=== PATIENT | female | born 1990 ===

== ENCOUNTER 2022-08-02 01:05 | Inpatient (IN) | payer SELFPAY ==
[2022-08-02] MEDS ORDERED: Terbutaline 1 MG/ML SDV SUBCUT PRN (01:31)
[2022-08-02] MEDS ORDERED: Ondansetron 4 MG/2 ML SDV IVPUSH PRN (01:31)
[2022-08-02] MEDS ORDERED: Carboprost Tromethamine 250 MCG/1 ML Amp IM PRN (01:31)
[2022-08-02] MEDS ORDERED: Sodium Chloride 0.9% 2.5 ML Syringe FLUSH PRN (01:31)
[2022-08-02] MEDS ORDERED: Butorphanol 1 MG/ML SDV IVPUSH PRN (01:31)
[2022-08-02] MEDS ORDERED: Sodium Chloride 0.9% 10 ML Syringe FLUSH PRN (01:31)
[2022-08-02] MEDS ORDERED: Lidocaine 1% 50 ML MDV INJECT PRN (01:31)
[2022-08-02] MEDS ORDERED: Sodium Chloride 0.9% 20 ML SDV IV PRN (01:31)
[2022-08-02] MEDS ORDERED: Tranexamic Acid 1,000 MG in Sodium Chloride 0.9% 100 ML IV PRN (01:31)
[2022-08-02] MEDS ORDERED: Water For Irrigation,Sterile 1,000 ML Container IRR PRN (01:31)
[2022-08-02] MEDS ORDERED: Methylergonovine 0.2 MG/1 ML Amp IM PRN (01:31)
[2022-08-02] MEDS ORDERED: Misoprostol 200 MCG Tab PO PRN (01:31)
[2022-08-02] MEDS ORDERED: Lactated Ringers 1,000 ML IV SCH (01:45)
[2022-08-02] MEDS ORDERED: Oxytocin/0.9 % Sodium Chloride 30 UNIT/500 ML BAG IV SCH ×2 (01:45)
[2022-08-02] MEDS ORDERED: Misoprostol 25 MCG (1/4 of 100 MCG) Tab VAG PRN ×2 (02:00→06:00)
[2022-08-02 09:25] LABS: CARBON DIOXIDE,CO2 19.2 mmol/L (21.0-32.0); POTASSIUM,K 3.8 mmol/L (3.5-5.1)
[2022-08-02] MEDS ORDERED: Labetalol 100 MG/20 ML MDV IVPUSH ONE (13:42)
[2022-08-02] MEDS ORDERED: Benzocaine/Menthol 20%-0.5% Spray 78 GM Cannister TOP PRN (14:37)
[2022-08-02] MEDS ORDERED: oxyCODONE 5 MG Tab PO PRN (14:37)
[2022-08-02] MEDS ORDERED: Bisacodyl 10 MG Supp RECTAL PRN (14:37)
[2022-08-02] MEDS ORDERED: Witch Hazel Medicated Pads 40/Jar TOP PRN (14:37)
[2022-08-02] MEDS ORDERED: Docusate Sodium 100 MG Cap PO PRN (14:37)
[2022-08-02] MEDS ORDERED: Acetaminophen 500 MG Tab PO PRN ×2 (14:37)
[2022-08-02] MEDS ORDERED: Ibuprofen 400 MG Tab PO PRN (14:37)
[2022-08-02] MEDS ORDERED: Lanolin 100% Cream 7 GM Tube TOP PRN (14:37)
[2022-08-02] MEDS: Ibuprofen 800 MG Tab PO PRN (17:27)
[2022-08-02] MEDS ORDERED: Sodium Chloride 0.9% 100 ML ONE (19:04)
[2022-08-02] MEDS ORDERED: Tranexamic Acid 1,000 MG/10 ML Vial ONE (19:05)
[2022-08-02] MEDS ORDERED: Misoprostol 200 MCG Tab ONE (19:05)
[2022-08-03] MEDS: Ibuprofen 800 MG Tab PO PRN (00:04)
[2022-08-03 05:43] LABS: CARBON DIOXIDE,CO2 21.7 mmol/L (21.0-32.0); POTASSIUM,K 4.2 mmol/L (3.5-5.1)
== END 2022-08-03 17:25 | disposition home or self-care (01) | DRG 807 ==
LOC: MW.OBCHECK 01:05 → MW.OB 01:06 → MW.OBCHECK 01:31 → MW.OB 01:32 → OBSVTOIN 14:37 → MW.OB 14:38
PROVIDERS: ADMIT Obstetrics & Gynecology; ATTEND Obstetrics & Gynecology
PROC: 10E0XZZ Delivery of Products of Conception, External Approach (ICD-10-PCS; principal; 2022-08-02)
PROC: 0HQ9XZZ Repair Perineum Skin, External Approach (ICD-10-PCS; 2022-08-02)
PROC: 10907ZC Drainage of Amniotic Fluid, Therapeutic from Products of Conception, Via Natural or Artificial Opening (ICD-10-PCS; 2022-08-02)
DX: O13.4 Gestational [pregnancy-induced] hypertension without significant proteinuria, complicating childbirth (principal); Z37.0 Single live birth; Z3A.37 37 weeks gestation of pregnancy; O99.214 Obesity complicating childbirth; O70.0 First degree perineal laceration during delivery
CPT/HCPCS: 36415; 59025; 59409; 59414; 80053; 82570; 82803; 84156; 84550; 85027; 86592; 86850; 86900; 86901; A9270-GY; J0595; J2001; J2590; J3490; J7120; U0002